=== PATIENT | female | born 1970 | race African-American/Black ===

== ENCOUNTER 2018-07-25 16:37 | Emergency (ER) | payer OTHER ==
[2018-07-25 16:45] VITALS: BP 119/77; PULSE 71; TEMP 98.7; BMI 23.8
--- NOTE | 2018-07-25 16:50 | PDOC ---
Rapid Medical Evaluation Chief Complaint: Back Pain Time Seen by Provider: 07/25/18 16:47 Medical Evaluation: Allergies Allergy/AdvReac Type Severity Reaction Status Date / Time No Known Allergies Allergy Verified 07/25/18 16:44 Vital Signs Temp Pulse Resp BP Pulse Ox 98.7 F 71 18 119/77 100 07/25/18 16:42 07/25/18 16:42 07/25/18 16:42 07/25/18 16:42 07/25/18 16:42 07/25/18 16:48 I have performed a brief in person evaluation of this patient. The patient presents with chief complaint of : lower back pain s/p falling off a step ladder while reaching for something this afternoon Pertinent PE findings: moderate tenderness over dorsal aspect of lumbar spine of L4-S1 I have ordered the following: x-ray of lumbasacral The patient will proceed to the ER for further evaluation Discharge Disposition - Diagnosis Lower back pain Qualifiers: Chronicity: acute Back pain laterality: midline Sciatica presence: without sciatica Qualified Code(s): M54.5 - Low back pain - Referrals Referrals: Tamar Degroot MD [Primary Care Provider] - - Patient Instructions - Post Discharge Activity
--- NOTE | 2018-07-25 17:46 | PDOC ---
History of Present Illness - General Chief Complaint: Back Pain Stated Complaint: LOWER BACK PAIN, FALL Time Seen by Provider: 07/25/18 16:47 - History of Present Illness Initial Comments: 07/25/18 17:43 48-year-old female presents for evaluation of lower back pain after fall yesterday. She states she was doing some work around her home standing on a kitchen counter and treatment she went to get off she accidentally slipped as the ladder moved causing her to land on her lower back. She has no radicular symptoms of or loss of bowel or bladder function. No other associated symptoms Past History - Past Medical History Allergies/Adverse Reactions: Allergies Allergy/AdvReac Type Severity Reaction Status Date / Time No Known Allergies Allergy Verified 07/25/18 16:44 Home Medications: Ambulatory Orders Cyclobenzaprine HCl [Flexeril 10 mg] 10 mg PO HS PRN #10 tablet 07/25/18 Ibuprofen [Motrin -] 600 mg PO TID #30 tablet 07/25/18 CVA: No COPD: No Diabetes: (borderline) - Surgical History Cholecystectomy: Yes - Immunization History Immunization Up to Date: Yes - Suicide/Smoking/Psychosocial Hx Smoking History: Never smoked Have you smoked in the past 12 months: No Information on smoking cessation initiated: Yes Hx Alcohol Use: No Drug/Substance Use Hx: No Substance Use Type: None Review of Systems - Review of Systems Musculoskeletal: Yes: See HPI, Back Pain All Other Systems: Reviewed and Negative *Physical Exam - Vital Signs Last Vital Signs Temp Pulse Resp BP Pulse Ox 98.7 F 71 18 119/77 100 07/25/18 16:42 07/25/18 16:42 07/25/18 16:42 07/25/18 16:42 07/25/18 16:42 - Physical Exam Comments: Lumbar spine range of motion is slightly limited secondary to stiffness. Mild paralumbar musculature spasm. No midline tenderness. Chest 5 out of 5 strength in bilateral lower extremities negative straight leg raise test no clonus no gross sensorimotor deficits. She's neurovascular intact. 07/25/18 17:44 *DC/Admit/Observation/Transfer Diagnosis at time of Disposition: Lower back pain Qualifiers: Chronicity: acute Back pain laterality: midline Sciatica presence: without sciatica Qualified Code(s): M54.5 - Low back pain - Discharge Dispostion Disposition: HOME - Prescriptions Prescriptions: Cyclobenzaprine HCl [Flexeril 10 mg] 10 mg PO HS PRN #10 tablet PRN Reason: Muscle Spasms Ibuprofen [Motrin -] 600 mg PO TID #30 tablet - Referrals Referrals: Tamar Degroot MD [Primary Care Provider] - Donis Adkins MD [Staff Physician] - - Patient Instructions Printed Discharge Instructions: Low Back Pain, DI for Low Back Pain Additional Instructions: Return to the emergency room should symptoms worsen or go unresolved. Please take the medication as directed. The Motrin is 3 times a day with food. Please discontinue the medication of bothers her stomach. The muscle relaxers one tablet nighttime he will make you sleepy take before bed. Follow-up with spine surgery in 2-3 days for further evaluation and treatment options. - Post Discharge Activity
== END 2018-07-25 17:48 | disposition home or self-care (01) ==
LOC: JERFT 16:37
DX: M54.5 Low back pain (principal); W11.XXXA Fall on and from ladder, initial encounter; Y93.89 Activity, other specified; Y92.89 Other specified places as the place of occurrence of the external cause; R73.03 Prediabetes
CPT/HCPCS: 72100-TC-FY; 99281-25

== ENCOUNTER 2018-12-07 07:34 | Emergency (ER) | payer OTHER ==
[2018-12-07 07:42] VITALS: BP 121/63; PULSE 82; TEMP 98.6; BMI 23.8
--- NOTE | 2018-12-07 08:05 | PDOC ---
History of Present Illness - General Chief Complaint: Nausea/Vomiting Stated Complaint: VOMITING Time Seen by Provider: 12/07/18 08:04 - History of Present Illness Initial Comments: 12/07/18 08:05 48 year old woman with a history of osteoporosis and cholecystectomy, who presents with nausea and 7 episodes of nonbloody nonbilious vomiting that started at 1600 yesterday while she was at the store. Last episode of emesis was at 0300 this AM. The patient reports feelings of weakness that PSHX: cholecystectomy, 12/07/18 08:29 Past History - Past Medical History Allergies/Adverse Reactions: Allergies Allergy/AdvReac Type Severity Reaction Status Date / Time No Known Allergies Allergy Verified 12/07/18 07:39 Home Medications: Ambulatory Orders Ondansetron [Zofran -] 4 mg PO BID #14 tablet 12/07/18 CVA: No COPD: No Diabetes: (borderline) - Surgical History Cholecystectomy: Yes - Immunization History Immunization Up to Date: Yes - Suicide/Smoking/Psychosocial Hx Smoking History: Never smoked Have you smoked in the past 12 months: No Hx Alcohol Use: No Drug/Substance Use Hx: No Substance Use Type: None *Physical Exam - Vital Signs Last Vital Signs Temp Pulse Resp BP Pulse Ox 98.6 F 82 16 121/63 99 12/07/18 07:40 12/07/18 07:40 12/07/18 07:40 12/07/18 07:40 12/07/18 07:40 - Physical Exam Comments: 12/07/18 09:47 negative exam Moderate Sedation - Procedure Monitoring Vital Signs: Procedure Monitoring Vital Signs Temperature 98.6 F 12/07/18 07:40 Pulse Rate 82 12/07/18 07:40 Respiratory Rate 16 12/07/18 07:40 Blood Pressure 121/63 12/07/18 07:40 O2 Sat by Pulse Oximetry (%) 99 12/07/18 07:40 ED Treatment Course - LABORATORY CBC & Chemistry Diagram: 12/07/18 08:45 12/07/18 08:32 Medical Decision Making - Medical Decision Making 12/07/18 09:32 ED Course: labwork: unremarkable. patient reassessed, feels improved, no abdominal tenderness 12/07/18 09:47 po trial successful stbale for discharge *DC/Admit/Observation/Transfer Diagnosis at time of Disposition: Vomiting, Nausea - Discharge Dispostion Disposition: HOME Condition at time of disposition: Stable Decision to Admit order: No - Prescriptions Prescriptions: Ondansetron [Zofran -] 4 mg PO BID #14 tablet - Referrals Referrals: Tamar Degroot MD [Primary Care Provider] - - Patient Instructions Printed Discharge Instructions: DI for Nausea -- Adult, DI for Vomiting -- Adult Additional Instructions: You were seen in the ED for complaints of nausea and vomiting. In the ED you were evaluated with labwork which showed no acute findings, and you showed improvement with fluids and anti-nausea medications. There does not appear to be an acute need for immediate hospitalization. You are advised to follow up with your Primary Care Physician within 1 week. You were given a prescription for Zofran anti-nausea medication to take as needed. Drink plenty of fluids, broths, soups. Eat bland foods such as toast and introduce a regular diet as you can tolerate. Return to the ED immediately if you experience worsening nausea or vomiting, abdominal pain, fever, diarrhea, constipation, blood in vomit or stool. - Post Discharge Activity
[2018-12-07] MEDS ORDERED: METOCLOPRAMIDE HCL INJECTION 10 MG/2 ML VIAL IVPUSH ONE (08:25)
[2018-12-07] MEDS ORDERED: SODIUM CHLORIDE 1,000 ML IV SCH (08:30)
[2018-12-07] MEDS ORDERED: FAMOTIDINE 20 MG/50 ML IVPB 20 MG/50 ML MG IVPB ONE ×2 (08:32→08:58)
[2018-12-07 08:51] LABS: BASO % 0.4 % (0-2.0); EOS % 0.1 % (0-4.5); HEMATOCRIT 43.5 % (32.4-45.2); HEMOGLOBIN 15.2 GM/dL (10.7-15.3); LYMPH % 12.3 % (8-40); MCH 32.1 pg (25.7-33.7); MCHC 34.9 g/dl (32.0-36.0); MEAN CELL VOLUME 92.2 fl (80-96); MEAN PLT VOLUME 10.3 fl (7.5-11.1); NEUT % 76.2 % (42.8-82.8); PLATELET COUNT 142 K/MM3 (134-434); RBC 4.71 M/mm3 (3.60-5.2); RDW 14.2 % (11.6-15.6); WHITE BLOOD COUNT 6.3 K/mm3 (4.0-10.0)
[2018-12-07] MEDS ORDERED: METOCLOPRAMIDE HCL INJECTION 10 MG/2 ML VIAL ONE (08:58)
--- NOTE | 2018-12-07 09:23 | PDOC ---
Attending Attestation - HPI HPI: 12/07/18 09:30 The patient is a 48 year old female with a past medical history of osteoporosis and cholecystectomy here today for evaluation of nausea and vomiting. The patient reports that her vomiting began at approximately 4 pm yesterday and notes 7 episodes of vomiting. She also reports rectal that has been present for a while that is worse when she is dehydrated and better with hydration. Patient denies headache, lightheadedness. Denies fever, chills. Denies chest pain, shortness of breath. Denies diarrhea, abdominal pain. Allergies: NKA PCP: Tamar Degroot - Physicial Exam PE: 12/07/18 09:30 Vitals: Triage vital signs reviewed General Appearance: No acute distress, well nourished, well developed Head: Atraumatic Cardiac: Regular rate and rhythm, no murmurs, no rubs, no gallops Lungs: Clear to auscultation bilateral, good air movement bilaterally Abdomen: Soft, nondistended, normal bowel sounds, nontender to palpation Skin: Warm and dry, no rashes or lesions, no rash, no petechiae Psych: Normal mood, normal affect - Medical Decision Making 12/07/18 09:30 The patient is a 48 year old female with a past medical history of osteoporosis and cholecystectomy here today for evaluation of nausea and vomiting. <Terry Maldonado - Last Filed: 12/07/18 09:30> - Resident Resident Name: Stephany Glover - ED Attending Attestation I have performed the following: I have examined & evaluated the patient, The case was reviewed & discussed with the resident, I agree w/resident's findings & plan, Exceptions are as noted - Medical Decision Making 12/07/18 14:18 48 years old with epigastric discomfort nausea vomiting status post IV fluids IV Tylenol patient feels much better now tolerating fluids repeat abdominal exam completely benign. No laboratory abnormalities noted Very strict return abdominal pain instructions discussed with patient. Findings, need for follow-up and strict return instructions discussed. <Andrea Bang - Last Filed: 12/07/18 14:19>
[2018-12-07 09:28] LABS: ALBUMIN 3.3 g/dl (3.4-5.0); ALK PHOS 55 U/L (45-117); ANION GAP 8 MMOL/L (8-16); BILIRUBIN,TOTAL 0.8 mg/dL (0.2-1); BLOOD UREA NITROGEN 10 mg/dL (7-18); CALCIUM 8.4 mg/dL (8.5-10.1); CHLORIDE 106 mmol/L (98-107); CO2 25 mmol/L (21-32); CREATININE 0.7 mg/dL (0.55-1.3); GLUCOSE,RANDOM 116 mg/dL (74-106); POTASSIUM 3.9 mmol/L (3.5-5.1); SGOT/AST 19 U/L (15-37); SGPT/ALT 27 U/L (13-61); SODIUM 140 mmol/L (136-145); TOT PROT 7.3 g/dl (6.4-8.2)
== END 2018-12-07 10:35 | disposition home or self-care (01) ==
LOC: JER 07:34
PROC: 3E033GC Introduction of Other Therapeutic Substance into Peripheral Vein, Percutaneous Approach (ICD-10-PCS; principal; 2018-12-07)
PROC: 3E033GC Introduction of Other Therapeutic Substance into Peripheral Vein, Percutaneous Approach (ICD-10-PCS; 2018-12-07)
DX: R11.2 Nausea with vomiting, unspecified (principal); M19.90 Unspecified osteoarthritis, unspecified site; Z90.49 Acquired absence of other specified parts of digestive tract
CPT/HCPCS: 36415; 80053; 85025; 99282-25; J7030

== ENCOUNTER 2021-07-03 14:08 | Emergency (ER) | payer OTHER ==
[2021-07-03 14:17] VITALS: BP 125/79; PULSE 71; TEMP 98.6; BMI 23.8
== END 2021-07-03 16:30 | disposition home or self-care (01) ==
LOC: JER 14:08
DX: B02.9 Zoster without complications (principal)
CPT/HCPCS: 87252; 99283-25

== ENCOUNTER 2022-02-18 21:01 | Emergency (ER) | payer OTHER ==
[2022-02-18 21:19] VITALS: BP 143/82; PULSE 76; TEMP 98; BMI 23.8
[2022-02-19] MEDS ORDERED: TETRACAINE 0.5% HCL 0.6ML DROPPER.BOTTLE OD ONE (00:57)
[2022-02-19] MEDS ORDERED: FLUORESCEIN NA 1 EA STRIP OD ONE (00:57)
[2022-02-19] MEDS ORDERED: TETRACAINE 0.5% OPHTH SOLN 2 ML BOTTLE ONE (01:01)
[2022-02-19] MEDS ORDERED: FLUORESCEIN NA 1 EA STRIP ONE (01:01)
== END 2022-02-19 02:20 | disposition home or self-care (01) ==
LOC: JER 21:01
DX: S00.11XA Contusion of right eyelid and periocular area, initial encounter (principal); H10.13 Acute atopic conjunctivitis, bilateral; V49.40XA Driver injured in collision with unspecified motor vehicles in traffic accident, initial encounter
CPT/HCPCS: 99283-25